=== PATIENT | female | born 2005 | race Caucasian/White ===

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

== ENCOUNTER 2024-06-23 16:55 | Emergency (ER) | payer BC ==
--- OUTSIDE RECORDS SUMMARY | 2024-06-23 16:59 | XMS REPORT | Continuity of Care Document ---
Author Name Unknown Address [address] [place] [address] [facility] thconnect Address [address] [place] [address] Care Team Providers Care Material Handling Supervisor Name Role Phone Pcp, Patient Does Not Have A Primary Care Physic tashia YUKO_GCBZW_Dominiquea_S Attending Clinician Unavailchas ledesma Doctor Unassigned, Shiloh Attending Clinician U MEL Gupta Attending Clinician Unavailable Alvin Weston MD Attending Clinician [phone] Petrona Loomis MD Attending Clinician [phone] Mel March MD Attending Clinician [phone] UNASSIGNED, ED Attending Clinician Unavailable YUKO_GCBZW_Dominiquea_S Admitting Clinician PETRONA Marcus Admitting Clinician Unavailable Petrona Loomis MD Admitting Clinician [phone] Payers Payer Name Policy Type Policy Number Effective Date Expirati on Date Source [place] [id number] 2019 00:00:00 Problems Condition Name Condition Details Condition Category Status Onset Date Resolution Date Last Treatment Date Treating Clinician Comments Source Anxiety Anxiety Problem Active 10-22 00:00: 00 [facility] Depressive disorder Depressive Disorder Problem Active 10-22 00:00: 00 [facility] Cyst of ovary Cyst of Ovary Problem Active 10-22 00:00: 00 [facility] Seizure Seizure Disease Active 12-14 00:00: 00 [facility] Trauma Trauma Disease Active 12-13 00:00: 00 [facility] Problem Problem [facility] Allergies, Adverse Reactions, Alerts Allergy Name Allergy Type Status Severity Reaction(s) Onset Date Inactive Date Treating Clinician Comments Source NO KNOWN ALLERGIE S Drug Class Active [facility] Social History Social Habit Start Date Stop Date Quantity Comments Source History SDOH Housing Places Lived [facility] History of tobacco use Cigarette Smoker [facility] to SARS-CoV-2 (event) 2022-12-03 00:00:00 2022-12-13 09:08:00 Not sure [facility] History SDOH Alcohol Frequency 2022-12-13 00:00:00 2022-12-13 00:00:00 4 [facility] History SDOH Alcohol Std Drinks 2022-12-13 00:00:00 2022-12-13 00:00:00 1 [facility] History SDOH Alcohol Binge 2022-12-13 00:00:00 2022-12-13 00:00:00 3 [facility] History SDOH Financial 2022-12-13 00:00:00 2022-12-13 00:00:00 4 [facility] History SDOH Transport Med 2022-12-13 00:00:00 2022-12-13 00:00:00 2 [facility] History SDOH Transport Non-Med 2022-12-13 00:00:00 2022-12-13 00:00:00 2 [facility] History SDOH Housing Unable to Pay 2022-12-13 00:00:00 2022-12-13 00:00:00 2 [facility] History SDOH Housing Homeless Last Year 2022-12-13 00:00:00 2022-12-13 00:00:00 2 [facility] History of Social function 2022-12-13 00:00:00 2022-12-13 00:00:00 [facility] Tobacco use and exposure 2022-12-13 00:00:00 2022-12-13 00:00:00 User of smokeless tobacco [facility] Sex Assigned At 2003 00:00:00 2005 00:00:00 [facility] Smoking Status Start Date Stop Date Source Unknown if ever smoked [facility] [employer] Smokes tobacco daily 2022-12-13 00:00:00 [facility] Medications Ordered Medication Name Filled Medication Name Start Date Stop Date Current Medication? Ordering Clinician Indication Dosage Frequency Signature (SIG) Comments Components Source KCL (KLOR-CON M20) tablet 40 mEq 12-15 10:45: 00 12-15 10:46 :00 No 40meq 40 mEq, Oral, ONCE, 1 dose, On Sun12/15/22 at 0545, Routine [facility] LORazepam (ATIVAN) injection 2 mg 12-14 04:00: 00 12-14 11:41 :00 No 2mg 2 mg, Slow IV Push, ONCE, 1 dose, On Sun12/13/22 at 2300, Routine [facility] nicotine (NICODERM) 7 mg/24 hr patch 1 Patch 12-14 01:45: 00 Yes 1{patch } 1 Patch, Topical, Administer over 24 Hours, Q24H, First dose on Sun12/13/22 at 2044, Until Discontinu ed, Routine [facility] NaCl 0.9% (NS) IV infusion 1,000 mL 12-14 01:45: 00 Yes 1000mL at 100 mL/hr, IV Infusion, CONTINUOUS , Starting on Sun12/13/22 at 2044, Until Discontinu ed, Routine [facility] methocarbam oL (ROBAXIN) tablet 500 mg 12-14 01:00: 00 Yes 500mg 500 mg, Oral, QID, First dose on Sun12/13/22 at 2000, Until Discontinu ed, Routine [facility] enoxaparin (LOVENOX) injection 40 mg 12-13 22:00: 00 Yes 40mg 40 mg, Subcutaneo us, DAILY, First dose on Sun12/13/22 at 1700, Until Discontinu ed, Routine [facility] LORazepam (ATIVAN) injection 2 mg 12-13 21:07: 08 12-14 00:46 :00 No 2mg 2 mg, Slow IV Push, Q15MIN PRN, 2 doses, Starting on Sun12/13/22 at 1607, Until Discontinu ed, Routine, Seizures [facility] ketorolac (TORADOL) tablet 10 mg 12-13 21:05: 42 12-16 21:04 :42 No 10mg 10 mg, Oral, Q6HPRN, Starting on Sun12/13/22 at 1605, Until 12/16/22 at 1604, Routine, Pain (scale 4-6), Pain (scale 1-3) [facility] thiamine (VITAMIN B1) tablet 100 mg 12-13 19:15: 00 Yes 100mg 100 mg, Oral, DAILY, First dose on Sun12/13/22 at 1415, Until Discontinu ed, Routine [facility] ondansetron (ZOFRAN (PF)) injection 4 mg 12-13 16:15: 00 12-13 15:51 :00 No 4mg 4 mg, Slow IV Push, ONCE, On Sun12/13/22 at 1115, For 1 dose
Do ses of ondansetro n 16 mg and above need to be administer ed via IV piggyback. For Dose >=24mg ECG monitoring is advisable.
[facility] acetaminoph en (TYLENOL) tablet 650 mg 12-13 13:52: 56 Yes 650mg 650 mg, Oral, Q6HPRN, Starting on Sun12/13/22 at 0852, Until Discontinu ed, Routine, Pain (scale 1-3) [facility] iopamidol (ISOVUE 370-500 mL) injection 100 mL 12-13 13:30: 00 12-13 12:26 :00 No [id number] 100mL 100 mL, Intravenou s, ONCE, 1 dose, On Sun12/13/22 at 0830, Routine [facility] lactated ringers IV infusion 1,000 mL 12-13 12:00: 00 12-15 00:46 :00 No 1000mL at 999 mL/hr, 1,000 mL, Intravenou s, ONCE, 1 dose, On Sun12/13/22 at 0700, STAT [facility] Acetaminoph en (Tylenol) 325 Mg TAB 08-29 16:18: 00 No 650mg Every 6 Hours as needed for Discomfort [facility] Ketorolac Tromethamin e (Toradol) 10 Mg TAB 08-29 16:18: 00 No 10mg Every 6 Hours as needed for Abdominal Pain [facility] Ondansetron Hcl (Zofran Odt) 4 Mg TAB.RAPDIS 08-29 16:18: 00 No 4mg Every 8 Hours as needed for Nausea / Vomiting [facility] Nexplanon Nexplanon No Nexplanon [facility] ibuprofen 400 mg tablet Take 1 tablet every 4 hours by oral route. ibuprofen 400 mg tablet Take 1 tablet every 4 hours by oral route. No 1 Q4H ibuprofen 400 mg tablet Take 1 tablet every 4 hours by oral route. [facility] Vital Signs Vital Name Observation Time Observation Value Comments S ource Height 2023 00:00:00 64 [in_i] [facility] BP Systolic 2023 00:00:00 111 mm[Hg] [facility] Body Weight 2023 00:00:00 139.8 [lb_av] [facility] BMI (Body Mass Index) 2023 00:00:00 24 kg/m2 [facility] BP Diastolic 2023 00:00:00 74 mm[Hg] [facility] Systolic blood pressure 2022-12-15 20:45:00 109 mm[Hg] [facility] Diastolic blood pressure 2022-12-15 20:45:00 83 mm[Hg] [facility] Heart rate 2022-12-15 20:45:00 81 /min [facility] Oxygen saturation in Arterial blood by Pulse oximetry 2022-12-15 20:45:00 98 /min [facility] Respiratory rate 2022-12-15 19:00:00 19 /min [facility] Body temperature 2022-12-15 17:00:00 36.61 Luanne [facility] Body height 2022-12-13 16:43:00 157.5 cm [facility] Body weight 2022-12-13 16:43:00 63.504 kg [facility] BMI 2022-12-13 16:43:00 25.61 kg/m2 [facility] BP Diastolic 2020-08-29 16:32:00 92 mm[Hg] [facility] [employer] BP Systolic 2020-08-29 16:32:00 132 mm[Hg] [facility] Heart Rate 2020-08-29 16:32:00 90 /min [email or web address] Respiratory rate 2020-08-29 16:32:00 20 /min [facility] Body Temperature 2020-08-29 16:32:00 98.0 [degF] [facility] BP Diastolic 2020-08-29 14:40:00 92 mm[Hg] [facility] BP Systolic 2020-08-29 14:40:00 132 mm[Hg] [facility] Rate 2020-08-29 14:40:00 90 /min [employer] Respiratory rate 2020-08-29 14:40:00 20 /min [facility] Body Temperature 2020-08-29 14:40:00 98.0 [degF] [facility] Procedures Procedure Date / Time Performed Performing Clinician Source REFERRAL- REQUEST/RESPONSE 2023-01-02 05:01:00 Doctor Unassigned, Shiloh [facility] PHOSPHORUS 2022-12-15 08:55:00 SaldanaLeif Archer [facility] MAGNESIUM 2022-12-15 08:55:00 SaldanaLeif Archer [facility] BASIC METABOLIC PANEL (NA, K , CL, CO2, GLUCOSE, BUN, CREATININE, CA) 2022-12-15 08:55:00 SaldanaLeif Rider [facility] CBC WITH DIFF 2022-12-15 08:55:00 SaldanaLeif Rider [facility] PHOSPHORUS 2022-12-14 12:55:00 Saldana de [facility]ohnny [facility] KINASE 2022-12-14 12:55:00 King Farah [facility] MAGNESIUM 2022-12-14 12:55:00 [facility] BASIC METABOLIC PANEL (NA, K , CL, CO2, GLUCOSE, BUN, CREATININE, CA) 2022-12-14 12:55:00 Saldana Leif Sin [facility] CBC WITH DIFF 2022-12-14 09:40:00 Leif Patterson [facility] MR BRAIN WO CONTRAST 2022-12-14 04:10:59 King Farah [facility] URINE DRUG (IMMUNOASSAY) - COMPREHENSIVE DRUG SCREEN 2022-12-13 21:38:00 King Farah [facility] PHOSPHORUS 2022-12-13 19:26:00 [facility] CREATINE KINASE 2022-12-13 19:26:00 King Farah [facility] MAGNESIUM 2022-12-13 19:26:00 [facility] ETHANOL 2022-12-13 19:26:00 King Farah [facility] XR HUMERUS 2 VW RIGHT 2022-12-13 13:16:[facility] 2022-12-13 12:31:19 Carmelina Vasquez [facility] CT TRAUMA THORACIC SPINE WO CONTRAST 2022-12-13 12:31:19 Adali Vasquezgail [facility] CT TRAUMA ABDOMEN PELVIS W CONTRAST 2022-12-13 12:31:19 Adali Vasquezgail [facility] CT TRAUMA LUMBAR SPINE WO CONTRAST 2022-12-13 12:31:19 Adali Vasquezgail [facility] BASIC METABOLIC PANEL (NA, K , CL, CO2, GLUCOSE, BUN, CREATININE, CA) 2022-12-13 11:55:00 Alvin Weston [facility] CBC WITHOUT DIFF 2022-12-13 11:55:00 Weston, [facility] PROTHROMBIN TIME / INR 2022-12-13 11:55:00 Alvin Weston [facility] ACTIVATED PARTIAL THRMPLAS RSOALINDA 2022-12-13 11:55:00 Alvin Weston [facility] HB ABO GROUPING 2022-12-13 11:55:00 Alvin Weston [facility] ELECTROENCEPHALOGRAM 2022-12-13 00:00:00 Vanessa Nowak [facility] Computed tomography of abdomen and pelvis with contrast 2020-08-29 00:00:00 [facility] Planned Activity Planned Date Details Comments Source Diagnostic Test Pending 2023 00:00:00 CT + NG RNA, urine [code = CT + NG RNA, urine] [facility] Medical Encounters Start Date/Time End Date/Time Encounter Type Admission Type Attending [facility] Facility Care Department Encounter ID Source 2023 00:00:00 2023 00:00:00 Rhonda Soares, ROLL CUTTER: [address] [place], [place] [address], [place] [address] , Ph. GC_GCBZW_Ka diyala_S [facility] - GC_GCBZW_[facility]* [id number] [facility] 2023-10-22 00:00:00 2023-10-22 00:00:00 Outpatient GC_GCBZW_Ka diyala_S [facility] [id number] [facility] 2023-10-17 00:00:00 2023-10-17 00:00:00 Outpatient GC_GCBZW_Ka diyala_S [facility] [id number] [facility] 2023-01-25 00:00:00 2023-01-25 00:00:00 Patient Secure Msg Doctor Unassigned, Shiloh [facility] [id number] [facility] 2023-01-02 00:00:00 2023-01-02 00:00:00 Orders Only Doctor Unassigned, Shiloh [facility] 1..840.114 [id number] [id number] [facility] 2022-12-13 06:50:00 2022-12-15 15:55:00 Outpatient T [facility] STR [id number] [facility] 2022-12-13 06:50:00 2022-12-15 15:55:00 Emergency Weston, Alvin Loomis, [facility]rona [facility] 1..840.114 [id number] [facility] 2020-08-29 14:03:00 2020-08-29 14:03:00 Departed Emergency Room ER UNASSIGNED, ED MAVIS GAMBLE [id number] [address] [place] [address] Results Test Description Test Time Test Comments Results Result Co mments Source [facility]23-[facility]-25 13:19:20* Test Item Value Reference Range Interpretation Comme nts PHOSPHORUS (test code = 3684089092) 3.6 mg/dL 2.5-5.0 Lab Interpretation (test cod e = 29946-2) Normal [facility] (NA, K, CL, CO2, GLUCOSE, BUN, CREATININE, CA)2022-12-14 13:19:20* Test Item Value Reference Range Interpretation Comme nts NA (test code = 4211267015) 139 mmol/L 135-145 K (test code = 7944257284) 3.6 mmol/L 3.5-5.0 CL (test code = 9150756680) 108 mmol/L 98-108 CO2 TOTAL (test code = 0385902365) 23 mmol/L 23-31 AGAP (test code = 9161740842) 8 2-16 BUN (test code = 9645757653) 7 mg/dL 7-23 GLUCOSE (test code = 3317214434) 77 mg/dL 70-110 CREATININE (test code = 3629439374) 0.62 mg/dL 0.50-1.04 CALCIUM (test code = 0170734931) 8.3 mg/dL 8.6-10.6 L eGFR (test code = 4683047643) 124.0 mL/min/1.73m2 LEON (test code = LEON) Association of Glomerular Filtration Rate (GFR) and Staging of Kidney Disease* + --+ --+ ------+| GFR (mL/min/1.73 m2) ?| With Kidney Damage ?| ?Without Kidney Damage+ --------+ --------+ +| ?>90 ?| ?Stage one ?| ? Normal ?+ ---+ ---+ -------+| ?60-89 ?| ?Stage two ?| ? Decreased GFR ? + --+ --+ ------+| ?30-59 ?| ?Stage three ?| ? Stage three ? + --+ --+ ------+| ?15-29 ?| ?Stage four ? | ? Stage four ?+ ---+ ---+ -------+| ?<15 (or dialysis) ? ?| ?Stage five ? | ? Stage five ?+ ---+ ---+ -------+ *Each stage assumes the associated GFR level has been in effect for at least three months. ?Stages 1 to 5, with or without kidney disease, indicate chronic kidney disease. Notes: Determination of stages one and two (with eGFR >59mL/min/1.73 m2) requires estimation of kidney damage for at least three months as defined by structural or functional abnormalities of the kidney, manifested by either:Pathological abnormalities or Markers of kidney damage (including abnormalities in the composition of the blood or urine or abnormalities in imaging tests). Lab Interpretation (test code = 64373-2) Abnormal [facility] [id number] 13:19:20* Test Item Value Reference Range Interpretation Comme nts CK (test code = 6244848707) 188 U/L 33-194 Lab Interpretation (test cod e = 51073-0) Normal [facility] Metabolic Panel (NA, K, CL, CO2, GLUCOSE, BUN, CREATININE, CA)2022-12-13 12:24:25* Test Item Value Reference Range Interpretation Comme nts NA (test code = 6520364316) 142 mmol/L 135-145 K (test code = 1100853830) 4.2 mmol/L 3.5-5.0 CL (test code = 8437563869) 111 mmol/L 98-108 H CO2 TOTAL (test code = 0762596209) 21 mmol/L 23-31 L AGAP (test code = 6366597853) 10 2-16 BUN (test code = 7691530352) 7 mg/dL 7-23 GLUCOSE (test code = 0180903909) 91 mg/dL 70-110 CREATININE (test code = 4660003112) 0.69 mg/dL 0.50-1.04 CALCIUM (test code = 0653509843) 7.9 mg/dL 8.6-10.6 L eGFR (test code = 7312686795) 109.6 mL/min/1.73m2 LEON (test code = LEON) Association of Glomerular Filtration Rate (GFR) and Staging of Kidney Disease* + --+ --+ ------+| GFR (mL/min/1.73 m2) ?| With Kidney Damage ?| ?Without Kidney Damage+ --------+ --------+ +| ?>90 ?| ?Stage one ?| ? Normal ?+ ---+ ---+ -------+| ?60-89 ?| ?Stage two ?| ? Decreased GFR ? + --+ --+ ------+| ?30-59 ?| ?Stage three ?| ? Stage three ? + --+ --+ ------+| ?15-29 ?| ?Stage four ? | ? Stage four ?+ ---+ ---+ -------+| ?<15 (or dialysis) ? ?| ?Stage five ? | ? Stage five ?+ ---+ ---+ -------+ *Each stage assumes the associated GFR level has been in effect for at least three months. ?Stages 1 to 5, with or without kidney disease, indicate chronic kidney disease. Notes: Determination of stages one and two (with eGFR >59mL/min/1.73 m2) requires estimation of kidney damage for at least three months as defined by structural or functional abnormalities of the kidney, manifested by either:Pathological abnormalities or Markers of kidney damage (including abnormalities in the composition of the blood or urine or abnormalities in imaging tests). Lab Interpretation (test code = 49642-1) [facility]normal [facility] Time / [id number] 12:16:46* Test Item Value Reference Range Interpretation Comme [facility] PROTIME PATIENT (test code = 5964-2) 12.0 See_Comment [Automated messa ge] The system which generated this result transmitted reference range: 10.1 - 12.6 Seconds. The reference range was not used to interpret this result as normal/abnormal. INR (test code = 6301-6) 1.1 Normal INR <1.1; Warfarin Therapeutic range 2.0 to 3.0 or 2.5 to 3.5, depending upon the indications. Lab Interpretation (test code = 92797-7) Normal [facility]TT2023-05-24 12:16:46* Test Item Value Reference Range Interpretation Comme [facility] APTT Patient (test code = 3173-2) 28 See_Comment [Automated messa ge] The system which generated this result transmitted reference range: 26 - 36 Seconds. The reference range was not used to interpret this result as normal/abnormal. Lab Interpretation (test code = 03805-3) Normal [facility] / [id number] 12:12:07* Test Item Value Reference Range Interpretation Comme [facility] WBC (test code = 6690-2) 3.84 See_Comment L [Automated message] The system which generated this result transmitted reference range: 4.30 - 11.10 10*3/?L. The reference range was not used to interpret this result as normal/abnormal. RBC (test code = 789-8) 3.66 See_Comment L [Automated message] The system which generated this result transmitted reference range: 3.93 - 5.25 10*6/?L. The reference range was not used to interpret this result as normal/abnormal. HGB (test code = 718-7) 8.9 g/dL 11.6-15.0 L HCT (test code = 4544-3) 28.2 % 35.7-45.2 L MCH (test code = 785-6) 24.3 pg 25.9-32.8 L MCV (test code = 787-2) 77.0 fL 80.6-95.5 L MCHC (test code = 786-4) 31.6 g/dL 31.6-35.1 PLT (test code = 777-3) 209 See_Comment [Automated message] The system which generated this result transmitted reference range: 166 - 358 10*3/?L. The reference range was not used to interpret this result as normal/abnormal. MPV (test code = 71756-2) 9.8 fL 9.5-12.9 RDW-CV (test code = 788-0) 14.1 % 12.0-15.5 RDW-SD (test code = 13295-5) 39.6 fL 39.0-49.9 NRBC x10^3 (test code = 8337384847) See_Comment [Automated messa ge] The system which generated this result transmitted reference range: 10*3/?L. The reference range was not used to interpret this result as normal/abnormal. NRBC/100 WBC (test code = 5793244329) 0.0 See_Comment [Automated messa ge] The system which generated this result transmitted reference range: 0.0 - 10.0 /100 WBCs. The reference range was not used to interpret this result as normal/abnormal. IPF % (test code = 8638222715) Lab Interpretation (test code = 08410-0) [facility]normal [facility] - The Type and Screen expires at midnight on the 3rd day after it was drawn. A current Type and Screen is required when RBCs are requested. For all other blood products, a Type and Scr een performed during the current hospitalizati...2022-12-13 12:06:00* Test Item Value Reference Range Interpretation Comme nts ABO & RH (test code = 20) B NEGATIVE IAT (test code = 1185) Negative [facility] blood leukocyte count (number/volume)2020-08-29 15:10:00* Test Item Value Reference Range Interpretation Comme [facility] White Blood Count (test code = 6690-2) 6.5 4.5-11.5 [facility] automated count (number/volume)2020-08-29 15:10:00* Test Item Value Reference Range Interpretation Comme [facility] Red Blood Count (test code = 789-8) 4.48 3.8-5.1 [facility] hemoglobin measurement (mass/volume)2020-08-29 15:10:00* Test Item Value Reference Range Interpretation Comme nts Hemoglobin (test code = 718-7) 11.4 12.0-15.2 [facility] blood hematocrit (volume fraction)2020-08-29 15:10:00* Test Item Value Reference Range Interpretation Comme nts Hematocrit (test code = 4544-3) 34.5 34.0-45.5 [facility] erythrocyte mean corpuscular volume (MCV) measurement 2020-08-29 15:10:00* Test Item Value Reference Range Interpretation Comme nts Mean Corpuscular Volume (yonathan t code = 787-2) 77.0 80-94 [facility] erythrocyte mean corpuscular hemoglobin (mass per erythrocyte)2020-08-29 15:10:00* Test Item Value Reference Range Interpretation Comme [facility] Mean Corpuscular Hemoglobin (test code = 785-6) 25.4 27.0-33.0 [facility] erythrocyte mean corpuscular hemoglobin concentration measurement (mass/volume)2020-08-29 15:10:00* Test Item Value Reference Range Interpretation Comme nts Mean Corpuscular Hemoglobin Concent (test code = 786-4) 33.0 33.0-37.0 [facility] erythrocyte distribution width [id number] 15:10:00 * Test Item Value Reference Range Interpretation Comme [facility] Red Cell Distribution Width (test code = 788-0) 14.4 10.7-14.5 [facility] blood platelet count (count/volume)2020-08-29 15:10:00 * Test Item Value Reference Range Interpretation Comme nts Platelet Count (test code = 777-3) 278 150-450 [facility] Health[facility] blood platelet mean volume [id number] 15:10:00* Test Item Value Reference Range Interpretation Comme nts Mean Platelet Volume (test c ode = 14789-8) 10.0 5.7-10.7 [facility] Health[facility] blood neutrophil count as percentage of total [id number] 15:10:00* Test Item Value Reference Range Interpretation Comme nts Neutrophils (%) (Auto) (test code = 770-8) 45 47-75 [facility] Health[facility] blood lymphocyte count as percentage of total [id number] 15:10:00* Test Item Value Reference Range Interpretation Comme nts Lymphocytes (%) (Auto) (test code = 736-9) 36 25-44 [facility] Health[facility] blood monocyte count as percentage of total leukocytes 2020-08-29 15:10:00* Test Item Value Reference Range Interpretation Comme nts Monocytes (%) (Auto) (test c ode = 5905-5) 9 3-10 [facility] HealthAutomated blood eosinophil count as percentage of total [id number] 15:10:00* Test Item Value Reference Range Interpretation Comme nts Eosinophils (%) (Auto) (test code = 713-8) 9 0-7 [facility] HealthAutomated blood basophil count as percentage of total leukocytes 2020-08-29 15:10:00* Test Item Value Reference Range Interpretation Comme nts Basophils (%) (Auto) (test c ode = 706-2) 1 0-1 [facility] HealthAutomated blood neutrophil count (number/volume)2020-08-29 15:10:00* Test Item Value Reference Range Interpretation Comme nts Neutrophils # (Auto) (test c ode = 751-8) 2.9 1.3-6.7 [facility] HealthAutomated blood lymphocyte count (number/volume)2020-08-29 15:10:00* Test Item Value Reference Range Interpretation Comme nts Lymphocytes # (Auto) (test c ode = 731-0) 2.3 1.4-4.1 [facility] HealthBlood monocytes automated count (number/volume)2020-08-29 15:10:00* Test Item Value Reference Range Interpretation Comme nts Monocytes # (Auto) (test code = 742-7) 0.6 0-1.3 [facility] HealthAutomated blood eosinophil [id number] 15:10:00* Test Item Value Reference Range Interpretation Comme nts Eosinophils # (Auto) (test c ode = 711-2) 0.6 0-0.8 [facility] HealthAutomated blood basophil count (number/volume)2020-08-29 15:10:00 * Test Item Value Reference Range Interpretation Comme nts Basophils # (Auto) (test code = 704-7) 0.1 0-0.1 [facility] comment [id number] 15:10:00* Test Item Value Reference Range Interpretation Comme nts Manual Differential (test co de = 8265-1) Not Ind [facility] HealthSerum or plasma sodium measurement (moles/volume)2020-08-29 15:10:00* Test Item Value Reference Range Interpretation Comme nts Sodium Level (test code = 2951-2) 139 136-145 [facility]Serum or plasma potassium measurement (moles/volume)2020-08-29 15:10:00* Test Item Value Reference Range Interpretation Comme nts Potassium Level (test code = 2823-3) 4.0 3.5-5.1 [facility]Serum or plasma chloride measurement (moles/volume)2020-08-29 15:10:00* Test Item Value Reference Range Interpretation Comme nts Chloride Level (test code = 2075-0) 108 98-107 [facility]Serum or plasma total carbon dioxide measurement (moles/volume) 2020-08-29 15:10:00* Test Item Value Reference Range Interpretation Comme nts Carbon Dioxide Level (test c ode = 2028-03) 23 22-29 [facility]um or plasma anion gap determination (moles/volume)2020-08-29 15:10:00* Test Item Value Reference Range Interpretation Comme nts Anion Gap (test code = 99633-3) 12 8-18 [facility] or plasma urea nitrogen measurement (mass/volume)2020-08-29 15:10:00* Test Item Value Reference Range Interpretation Comme nts Blood Urea Nitrogen (test co de = 3094-0) 6 8-21 [facility] or plasma creatinine measurement (mass/volume)2020-08-29 15:10:00* Test Item Value Reference Range Interpretation Comme nts Creatinine (test code = 2160-0) 0.7 0.6-1.1 [facility]Serum or plasma glucose measurement (mass/volume)2020-08-29 15:10:00* Test Item Value Reference Range Interpretation Comme nts Glucose Level (test code = 2345-7) 80 60-100 [facility] or plasma calcium measurement (mass/volume)2020-08-29 15:10:00* Test Item Value Reference Range Interpretation Comme nts Calcium Level (test code = 80337-2) 8.8 8.4-10.2 [facility] or plasma total bilirubin measurement (mass/volume) 2020-08-29 15:10:00* Test Item Value Reference Range Interpretation Comme nts Total Bilirubin (test code = 1975-2) 0.7 0.2-1.2 [facility] or plasma aspartate aminotransferase measurement (enzymatic activity/volume)2020-08-29 15:10:00* Test Item Value Reference Range Interpretation Comme nts Aspartate Amino Transf (AST/ SGOT) (test code = 1920-8) 16 5-34 [facility] or plasma alanine aminotransferase measurement (enzymatic activity/volume)2020-08-29 15:10:00* Test Item Value Reference Range Interpretation Comme nts Alanine Aminotransferase (AL T/SGPT) (test code = 1742-6) 12 0-55 [facility] or plasma protein measurement (mass/volume)2020-08-29 15:10:00* Test Item Value Reference Range Interpretation Comme nts Total Protein (test code = 2885-2) 7.5 6.4-8.3 [facility] or plasma albumin measurement (mass/volume)2020-08-29 15:10:00* Test Item Value Reference Range Interpretation Comme nts Albumin (test code = 1751-7) 4.2 3.5-5.0 [facility]Ser[facility] or plasma alkaline phosphatase measurement (enzymatic activity/volume)2020-08-29 15:10:00* Test Item Value Reference Range Interpretation Comme nts Alkaline Phosphatase (test c ode = 6768-6) 57 40-150 [facility] [id number] 14:50:00* Test Item Value Reference Range Interpretation Comme nts Urine Source (test code = 86022-5) URINE [facility]rine by [id number] 14:50:00* Test Item Value Reference Range Interpretation Comme nts Urine Color (test code = 74869-1) Colorless Yel-Sandra * [facility] HealthUrine clarity [id number] 14:50:00* Test Item Value Reference Range Interpretation Comme nts Urine Appearance (test code = 29813-2) Clear Clear * [facility]Urine pH measurement by automated test [id number] 14:50:00* Test Item Value Reference Range Interpretation Comme nts Urine pH (test code = 87989-8) 7.0 5.0-8.0 [facility] HealthSpecific gravity of Urine by Automated test [id number] 14:50:00* Test Item Value Reference Range Interpretation Comme nts Urine Specific [place] (test code = 50510-6) 1.005 1.005-1.030 [facility]Urine protein measurement by automated test strip (mass/volume) 2020-08-29 14:50:00* Test Item Value Reference Range Interpretation Comme nts Urine Protein (test code = 57571-4) Negative Negative * [facility]Urine glucose measurement by automated test strip (mass/volume) 2020-08-29 14:50:00* Test Item Value Reference Range Interpretation Comme nts Urine Glucose (UA) (test cod e = 61873-8) Negative Negative * [facility] HealthKetones [Mass/volume] in Urine by Automated test [id number] 14:50:00* Test Item Value Reference Range Interpretation Comme nts Urine Ketones (test code = 20867-5) Negative Negative * [facility]rine erythrocytes count by automated test strip (number/volume) 2020-08-29 14:50:00* Test Item Value Reference Range Interpretation Comme nts Urine Occult Blood (test cod e = 49424-7) Negative Negative * [facility] HealthUrine nitrite detection by automated test [id number] 14:50:00* Test Item Value Reference Range Interpretation Comme nts Urine Nitrite (test code = 61577-6) Negative Negative [facility] total bilirubin measurement by automated test strip (mass/volume)2020-08-29 14:50:00* Test Item Value Reference Range Interpretation Comme nts Urine Bilirubin (test code = 14528-7) Negative Negative [facility]Urine urobilinogen measurement by automated test strip (mass/volume)2020-08-29 14:50:00* Test Item Value Reference Range Interpretation Comme nts Urine Urobilinogen (test cod e = 19082-5) Negative 0.0-1.0 [facility]Urine leukocytes count by automated test strip (number/volume) 2020-08-29 14:50:00* Test Item Value Reference Range Interpretation Comme nts Urine Leukocyte Esterase (te st code = 12042-5) Negative Negative [facility]rine sediment erythrocyte count by microscopy (number/high power field)2020-08-29 14:50:00* Test Item Value Reference Range Interpretation Comme nts Urine RBC (test code = 96377-7) None Seen 0-2 [facility]Urine sediment leukocyte count by microscopy (number/high power field)2020-08-29 14:50:00* Test Item Value Reference Range Interpretation Comme nts Urine WBC (test code = 5821-4) Rare 0-5 [facility]Urine sediment epithelial cell count by microscopy (number/high power field)2020-08-29 14:50:00* Test Item Value Reference Range Interpretation Comme nts Urine Epithelial Cells (test code = 5787-7) Rare Few [facility]Urine sediment crystal count by microscopy (number/high power field)2020-08-29 14:50:00* Test Item Value Reference Range Interpretation Comme nts Urine Crystals (test code = 34095-3) None Seen None * [facility]Urine sediment bacteria count by microscopy (number/high power field)2020-08-29 14:50:00* Test Item Value Reference Range Interpretation Comme nts Urine Bacteria (test code = 5769-5) None Seen None [facility]Urine sediment casts count by microscopy (number/low power field) 2020-08-29 14:50:00* Test Item Value Reference Range Interpretation Comme nts Urine Casts (test code = 9842-6) None Seen None * [facility] HealthYeast detection in urine sediment by light [id number] 14:50:00* Test Item Value Reference Range Interpretation Comme nts Urine Yeast (test code = 58490-1) None Seen None [facility] comment 14:50:00* Test Item Value Reference Range Interpretation Comme nts Urinalysis Comment (test code = 8262-8) * See_Comment [Automated messa ge] The system which generated this result transmitted reference range: *. The reference range was not used to interpret this result as normal/abnormal. [facility] comment 14:50:00* Test Item Value Reference Range Interpretation Comme nts Urine Culture Indicated (yonathan t code = 8264-4) Not Ind [facility] HealthHCG ur [id number] 14:50:00* Test Item Value Reference Range Interpretation Comme nts Urine Test (test c ode = 2106-3) Negative Negative [facility]"
[2024-06-23 19:52] LABS: Absolute Eosinophils 0.4 K/uL (0-0.5); Absolute Lymphocytes (CBC) 2.2 K/uL (0.7-4.9); Absolute Monocytes 0.3 K/uL (0.1-1.3); Absolute Neutrophil 2.4 K/uL (1.8-8.0); Basophils % 0.8 % (0-1.3); Eosinophils % 7.1 % (0-4.4); Hematocrit 40.1 % (36.0-45.0); Lymphocytes % 41.1 % (15.3-44.8); MCH 26.3 pg (27.0-35.0); MCHC 32.4 g/dL (32.0-36.0); MCV 81.1 fL (80-100); MPV 8.3 fL (7.6-11.3); Monocytes % 5.6 % (3.3-12.3); Neutrophils % 45.4 % (41.7-73.7); Platelets 290 thou/uL (152-406); RBC Red Blood Cell Count 4.94 M/uL (3.86-4.86); Red Cell Distribution Width 15.7 % (12.1-15.2)
[2024-06-23 20:04] LABS: Sqamous Epithelial <5 /HPF (None Seen); Urine Bacteria None Seen /HPF (<20); Urine Bilirubin NEGATIVE (Negative); Urine Blood Trace (Negative); Urine Clarity Clear (Clear); Urine Color Light-Yellow (Yellow); Urine Culture Reflex Order NOT NEEDED; Urine Glucose NEGATIVE (Negative); Urine Ketones 1+ (Negative); Urine Microscopic Reflex YN ORDER UMIC; Urine Mucus Slight /HPF (None Seen); Urine Nitrite NEGATIVE (Negative); Urine Protein NEGATIVE (Negative); Urine RBC <5 /HPF (None Seen); Urine Urobilinogen Normal (Normal); Urine WBC <5 /HPF (<5); Urine pH 6.5 (5.0-7.0)
[2024-06-23 20:06] LABS: Anion Gap 9.9 mEq/L (5.0-15.0); Bilirubin Total 1.2 mg/dL (0.2-1.0); Potassium 3.9 mEq/L (3.5-5.1)
[2024-06-23 20:10] LABS: SARS-CoV-2 Antigen CONTROL BLUE LINE VIS/BG OK; SARS-CoV-2 Antigen Rapid Res Negative (Negative)
[2024-06-23] MEDS ORDERED: METHYLPREDNISOLONE 125 MG INJ ONE (20:46)
[2024-06-23] MEDS ORDERED: CETIRIZINE HCL 5 MG TABLET ONE (20:46)
--- NOTE | 2024-06-23 22:14 | RAD REPORT ---
EXAMINATION: US RIGHT LOWER EXTREMITY VENOUS DOPPLER CLINICAL INDICATION: [facility] MA[facility] right leg PAIN Bed Name: DX4 Y TECHNIQUE: Complete bilateral duplex sonography of the RIGHT lower extremity veins was performed. The examination included compression for vein patency, color Doppler imaging and flow augmentation in response to distal compression of the distal external iliac, common femoral, femoral, popliteal, tibi al, and great and small saphenous veins. COMPARISON: No prior exam. FINDINGS: Duplex sonography testing of the veins of the RIGHT lower extremity was performed. Color flow imaging shows all veins to be compressible with [id number] color filling. Pulsatile and phasic flow is present within all lower extremity deep and superficial veins examined. IMPRESSION: No evidence of deep venous thrombosis.
--- NOTE | 2024-06-23 22:24 | ER ---
Nurse's Notes [facility] Name: Jose Fowler Age: 18 yrs Sex: Female : 2005 Arrival Date: 06/23/2024 Time: 16:55 Bed DX4 Private MD: Diagnosis: Cellulitis of right lower limb Presentation: 06/23 17:44 Chief complaint: Patient states: "I got stung by yellow jackets on my legs". pt reports aa5 she is taking Bactrim. Coronavirus screen: At this time, the client does not indicate any symptoms associated with coronavirus-19. Ebola Screen: Patient denies travel to an Ebola-affected area in the 21 days before illness onset. Initial Sepsis Screen: Does the patient meet any 2 criteria? No. Patient's initial sepsis screen is negative. Does the patient have a suspected source of infection? No. Patient's initial sepsis screen is negative. Risk Assessment: Do you want to hurt yourself or someone else? Patient reports no desire to harm self or others. Onset of symptoms was June 19, 2024. 17:44 Method Of Arrival: Ambulatory aa5 17:44 Acuity: DARLINE 5 aa5 Triage Assessment: 22:35 Bite description: bite sustained to right leg and right calf by a bee, animal bm8 information: vaccination(s) is not applicable is not up to date. [employer]: 17:44 LMP 05/28/2024, unknown aa5 Historical: - Allergies: 17:43 No Known Allergies; aa5 - PMHx: 17:43 Anxiety; depressive disorder; aa5 - PSHx: 17:43 Adenoid excision; Tonsillectomy; aa5 - Immunization history:: Adult Immunizations unknown. - Infectious Disease History:: Denies. - Social history:: Smoking status: Reported history of juuling and/or vaping. Screenin:58 [facility] ED Fall Risk Assessment (Adult) History of falling in the last 3 months, bm8 including since admission No falls in past 3 months (0 pts) Confusion or Disorientation No (0 pts) Intoxicated or Sedated No (0 pts) Impaired Gait No (0 pts) Mobility Assist Device Used No (0 pt) Altered Elimination No (0 pt) Score/Fall Risk Level 0 - 2 = Low Risk Oriented to surroundings, Maintained a safe environment, Educated pt \\T\\ family on fall prevention, incl call for assistance when getting out of bed, Assessed \\T\\ reinforced patient's understanding of fall precautions, Hourly rounding (assess needs \\T\\ fall precautionary measures) done, Used ambulatory aids as needed (educated on \\T\\ assisted with), Used gait belt as appropriate. Abuse screen: Denies threats or abuse. Nutritional screening: No deficits noted. Tuberculosis screening: No symptoms or risk factors identified. Assessment: 19:58 General: Appears in no apparent distress. comfortable, Behavior is calm, cooperative, bm8 appropriate for age. Pain: Complains of pain in right calf Pain currently is 2 out of 10 on a pain scale. Quality of pain is described as aching. Neuro: No deficits noted. Level of Consciousness is awake, alert, obeys commands, Oriented to person, place, time, situation, Appropriate for age. Cardiovascular: Denies chest pain, Heart tones S1 S2 present Capillary refill < 3 seconds in bilateral fingers Patient's skin is warm and dry. Respiratory: Airway is patent Trachea midline Respiratory effort is even, unlabored, Respiratory pattern is regular, symmetrical, Breath sounds are clear bilaterally. GI: No signs and/or symptoms were reported involving the gastrointestinal system. : No signs and/or symptoms were reported regarding the genitourinary system. EENT: No signs and/or symptoms were reported regarding the EENT system. Derm: Skin small insect like puncture wound on back of calf. Skin is red, Skin temperature is cool. Musculoskeletal: No signs and/or symptoms reported regarding the musculoskeletal system. 21:54 Reassessment: Patient appears in no apparent distress at this time. Patient and/or bm8 family updated on plan of care and expected duration. Pain level reassessed. Patient is alert, oriented x 3, equal unlabored respirations, skin warm/dry/pink. Patient denies pain at this time. 22:34 Reassessment: Patient appears in no apparent distress at this time. No changes from bm8 previously documented assessment. Patient and/or family updated on plan of care and expected duration. Pain level reassessed. Patient is alert, oriented x 3, equal unlabored respirations, skin warm/dry/pink. Patient denies pain at this time. Vital Signs: 17:45 BP 117 / 68; Pulse 90; Resp 18 S; Temp 97.8(TE); Pulse Ox 98% on R/A; Weight 65.77 kg aa5 (R); Height 5 ft. 5 in. (R); 19:58 BP 120 / 74; Pulse 88; Resp 17; Temp 98.8; Pulse Ox 99% ; Pain 2/10; bm8 21:54 BP 108 / 66; Pulse 75; Resp 16; Temp 98.8; Pulse Ox 100% on R/A; Pain 0/10; bm8 22:34 BP 105 / 66; Pulse 75; Resp 17; Temp 98.2; Pulse Ox 100% ; Pain 0/10; bm8 17:45 Body Mass Index 24.13 (65.77 kg, 165.1 cm) aa5 19:58 Pain Scale: Adult bm8 21:54 Pain Scale: Adult bm8 22:34 Pain Scale: Adult bm8 Tamia Coma Score: 19:58 Eye Response: spontaneous(4). Motor Response: obeys commands(6). Verbal Response: bm8 oriented(5). Total: 15. 21:54 Eye Response: spontaneous(4). Motor Response: obeys commands(6). Verbal Response: bm8 oriented(5). Total: 15. 22:34 Eye Response: spontaneous(4). Motor Response: obeys commands(6). Verbal Response: bm8 oriented(5). Total: 15. ED Course: 16:58 Patient arrived in ED. mg5 16:59 Jonny Peterson PA is PHCP. cp 16:59 Huseyin Szymanski MD is Attending Physician. cp 17:43 Arm band placed on. aa5 17:45 Triage completed. aa5 19:45 CBC with Diff Sent. oe 19:45 CMP Sent. oe 19:46 Inserted saline lock: 22 gauge in right antecubital area, using aseptic technique. oe Blood collected. Flushed with 10 mL NS. 19:54 Vishal Kaufman, RN is Primary Nurse. bm8 19:55 SARS RAPID Sent. oe 19:55 Influenza Screen (a \\T\\ B) Sent. oe 19:55 Test, Urine Sent. oe 19:55 Urinalysis w/ reflexes Sent. oe 19:56 CMP Sent. oe 19:56 CBC with Diff Sent. oe 19:58 Patient has correct armband on for positive identification. Client placed on continuous bm8 cardiac and pulse oximetry monitoring. NIBP monitoring applied. Pulse ox on. NIBP on. 19:58 No provider procedures requiring assistance completed. Initial lab(s) drawn, by ED bm8 staff, sent to lab. Urine collected: clean catch specimen, clear. Patient maintains SpO2 saturation greater than 95% on room air. 21:42 US Extremity Venous Unilateral Ltd In Process Unspecified. EDMS 22:34 Provided Education on: post er care. bm8 22:34 IV discontinued, intact, bleeding controlled, No redness/swelling at site. Pressure bm8 dressing applied. Administered Medications: 20:54 Drug: MethylPrednisoLONE IVP 125 mg IVP once Route: IVP; Site: right antecubital; bm8 21:55 Follow up: Response: No adverse reaction bm8 20:54 Drug: ZyrTEC - Cetirizine PO 10 mg PO once Route: PO; bm8 21:55 Follow up: Response: No adverse reaction bm8 Medication: 19:58 VIS not applicable for this client. bm8 Outcome: 22:23 Discharge ordered by MD. brayan 22:34 Discharged to home ambulatory, bm8 22:34 Condition: stable 22:34 Discharge instructions given to patient, family, Instructed on discharge instructions, follow up and referral plans. no drinking with medication, no driving heavy equipment, medication usage, safety practices, Demonstrated understanding of instructions, follow-up care, medications, 22:36 Patient left the ED. bm8 Signatures: Dispatcher [employer] EDNC Lainey Antonio, RN RN aa5 Jonny Peterson PA PA Buddy Landry [place] mg5 Vishal Kaufman RN RN bm8
--- NOTE | 2024-06-23 22:24 | EDPHYS ---
Physician Documentation [facility] Name: Jose Fowler Age: 18 yrs Sex: Female : 2005 Arrival Date: 06/23/2024 Time: 16:55 Bed DX4 Private MD: ED Physician Huseyin Szymanski HPI: 06/23 18:00 This 18 yrs old Female presents to ER via Ambulatory with complaints of Insect Bite. cp 18:00 The patient presents with rash, of the right leg and left leg and right calf, fever of cp 103 last night. 18:00 Possible causes: reports being stung by yellow jacket right calf on while cp hunting. Seen at Urgent Care this past Sunday and started on Bactrim due to concern for infection. Patient reports fever 103 and chills last night. Denies being bitten by tick, denies body aches, denies cough, denies sore throat, positive nausea but no vomiting due to taking Zofran, denies shortness of breath, denies diarrhea. Reports redness around sting site worse. 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 - Infectious Disease History:: Denies. - Social history:: Smoking status: Reported history of juuling and/or vaping. ROS: 18:05 Constitutional: Positive for fever, Negative for body aches, poor PO intake, cp 18:05 Skin: Positive for of the right calf, wasp sting, 18:05 Eyes: Negative for injury, pain, redness, and discharge, cp 18:05 Cardiovascular: Negative for chest pain, edema, palpitations, 18:05 Respiratory: Negative for cough, shortness of breath, wheezing, 18:05 Abdomen/GI: Negative for abdominal pain, vomiting, diarrhea, constipation, 18:05 : Negative for urinary symptoms, 18:05 Neuro: Negative for altered mental status, dizziness, headache, weakness, 18:05 All other systems are negative, Exam: 18:10 Constitutional: The patient appears in no acute distress, alert, awake, non-toxic, well cp developed, well nourished, afebrile 18:10 Head/Face: Normocephalic, atraumatic. cp 18:10 Eyes: Periorbital structures: appear normal, Conjunctiva: normal, no exudate, no injection, Sclera: no appreciated abnormality, Lids and lashes: appear normal, bilaterally, 18:10 ENT: External ear(s): are unremarkable, Nose: is normal, Mouth: Lips: moist, Oral mucosa: moist, Posterior pharynx: Airway: no evidence of obstruction, patent, 18:10 Chest/axilla: Inspection: normal, 18:10 Cardiovascular: Rate: normal, Rhythm: regular, 18:10 Respiratory: the patient does not display signs of respiratory distress, Respirations: normal, no use of accessory muscles, no retractions, labored breathing, is not present, Breath sounds: are clear throughout, no decreased breath sounds, no stridor, no wheezing, 18:10 Abdomen/GI: Inspection: abdomen appears normal, 18:10 Back: pain, is absent, ROM is normal, 18:10 Skin: softball size area of erythema noted right calf with no abscess and no drainage. Vital Signs: 17:45 BP 117 / 68; Pulse 90; Resp 18 S; Temp 97.8(TE); Pulse Ox 98% on R/A; Weight 65.77 kg aa5 (R); Height 5 ft. 5 in. (R); 19:58 BP 120 / 74; Pulse 88; Resp 17; Temp 98.8; Pulse Ox 99% ; Pain 2/10; bm8 21:54 BP 108 / 66; Pulse 75; Resp 16; Temp 98.8; Pulse Ox 100% on R/A; Pain 0/10; bm8 22:34 BP 105 / 66; Pulse 75; Resp 17; Temp 98.2; Pulse Ox 100% ; Pain 0/10; bm8 17:45 Body Mass Index 24.13 (65.77 kg, 165.1 cm) aa5 19:58 Pain Scale: Adult bm8 21:54 Pain Scale: Adult bm8 22:34 Pain Scale: Adult bm8 Tamia Coma Score: 19:58 Eye Response: spontaneous(4). Motor Response: obeys commands(6). Verbal Response: bm8 oriented(5). Total: 15. 21:54 Eye Response: spontaneous(4). Motor Response: obeys commands(6). Verbal Response: bm8 oriented(5). Total: 15. 22:34 Eye Response: spontaneous(4). Motor Response: obeys commands(6). Verbal Response: bm8 oriented(5). Total: 15. MDM: 17:35 Medical Screening Exam initiated cp 22:23 Data reviewed: vital signs, nurses notes, lab test result(s), radiologic studies, cp ultrasound, and as a result, I will discharge patient. 22:23 Differential diagnosis: anaphylaxis, angioedema, Alvin's Filiberto, cellulitis, DVT, cp abscess. I considered the following discharge prescriptions or medication management in the emergency department Medications were administered in the Emergency Department. See MAR. Counseling: I had a detailed discussion with the patient and/or guardian regarding the historical points, exam findings, and any diagnostic results supporting the discharge/admit diagnosis, lab results, radiology results, to return to the emergency department if symptoms worsen or persist or if there are any questions or concerns that arise at home. Response to treatment: the patient's symptoms have mildly improved after treatment, and as a result, I will discharge patient. 06/23 17:59 Order name: CBC with Diff; Complete Time: 20:21 12 20:21 Interpretation: Normal except: RBC 4.94; MCH 26.3; RDW 15.7; EOSINOPHIL % 7.1. 06/23 17:59 Order name: CMP; Complete Time: 20:21 06/23 17:59 Order name: Test, Urine; Complete Time: 20:21 06/23 17:59 Order name: Urinalysis w/ reflexes; Complete Time: 20:21 12/ 20:22 Interpretation: Normal except: UKET 1+; UBLD Trace. 12 19:45 Order name: Influenza Screen (a \T\ B); Complete Time: 20:21 12 19:45 Order name: SARS RAPID; Complete Time: 20:21 06/23 20:23 Order name: US Extremity Venous Unilateral Ltd; Complete Time: 22:20 12 22:20 Interpretation: Report reviewed. 06/23 17:59 Order name: IV Saline Lock; Complete Time: 19:45 06/23 17:59 Order name: Labs collected and sent; Complete Time: 19:45 cp Administered Medications: 20:54 Drug: MethylPrednisoLONE IVP 125 mg IVP once Route: IVP; Site: right antecubital; bm8 21:55 Follow up: Response: No adverse reaction bm8 20:54 Drug: ZyrTEC - Cetirizine PO 10 mg PO once Route: PO; bm8 21:55 Follow up: Response: No adverse reaction bm8 Disposition Summary: 06/23/24 22:23 Discharge Ordered Notes: Location: Home cp Problem: new cp Symptoms: have improved cp Condition: Stable cp Diagnosis - Cellulitis of right lower limb cp Followup: cp - With: Private Physician - When: 2 - 3 days - Reason: Worsening of condition Discharge Instructions: - Cellulitis, Adult cp - Discharge Summary Sheet bm8 Forms: - Medication Reconciliation Form cp - Antibiotic Education cp - Prescription Opioid Use cp - Patient Portal Instructions cp - Leadership Thank You Letter cp - Work release form bm8 Prescriptions: - Ibuprofen 800 mg Oral Tablet - take 1 tablet ORAL route every 8 hours As needed take with food; 30 tablet; cp Refills: 0, Product Selection Permitted - Doxycycline Hyclate 100 mg Oral Tablet - take 1 tablet ORAL route every 12 hours; 20 tablet; Refills: 0, Product cp Selection Permitted Signatures: Dispatcher [employer] Lainey Alex, RN RN aa5 Jonny Peterson PA PA cp Vishal Kaufman RN RN bm8 Corrections: (The following items were deleted from the chart) 06/24 18:49 17:28 Skin: Positive for of the right calf, wasp sting, cp cp 18:49 17:28 Constitutional: Positive for fever, Negative for body aches, poor PO intake, cp cp
[2024-06-24 02:24] VITALS: O2SAT 100
[2024-06-24 02:25] VITALS: BP 105/66; TEMP 98.2
== END 2024-06-23 22:36 | disposition home or self-care (01) ==
LOC: ER 16:55
DX: L03.115 Cellulitis of right lower limb (principal); R50.9 Fever, unspecified; Z11.52 Encounter for screening for COVID-19
CPT/HCPCS: 85025; 81001; 36415; 81025; 80053; 87804 ×2; 93971; 96374; 99284; 87811; J2919